=== PATIENT | female | born 2000 | race Two or more races ===

== ENCOUNTER 2025-01-05 21:31 | Emergency (ER) | payer MEDICAID, OTHER ==
[~2025-01-05] VITALS: Ht 149.9 cm; Wt 45.4 kg
[2025-01-05 21:41] VITALS: BP 107/69; PULSE 60; RESP 16; TEMP 98.1; O2SAT 99
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
== END 2025-01-06 00:11 | disposition home or self-care (01) ==
LOC: ER 21:31 → EDBD 21:31 → ER 01-06 00:11
DX: R51.9 Headache, unspecified (principal); Z04.89 Encounter for examination and observation for other specified reasons; Z88.0 Allergy status to penicillin; Z88.8 Allergy status to other drugs, medicaments and biological substances; Y08.89XA Assault by other specified means, initial encounter; Y93.89 Activity, other specified; Y92.89 Other specified places as the place of occurrence of the external cause; Y99.8 Other external cause status

== ENCOUNTER 2025-01-06 00:38 | Emergency (ER) | payer MEDICAID ==
[~2025-01-06] VITALS: Ht 149.9 cm; Wt 49.9 kg
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
[2025-01-06 02:56] LABS: Basophils # (auto) 0 10 ^3/uL (0-0.2); Basophils % (auto) 0.6 % (0.0-2.0); Eosinophils # (auto) 0.1 10 ^3/uL (0-0.8); Eosinophils % (auto) 1.5 % (0.0-7.0); Hematocrit 39.1 % (36.0-46.0); Hemoglobin 13.4 g/dL (12.2-16.2); Lymphocytes # (auto) 3.2 10 ^3/uL (0.4-5.4); Lymphocytes % (auto) 43.5 % (10.0-50.0); Mean Corpuscular Hemoglobin 29.4 pg (28.0-32.0); Mean Corpuscular Hgb Conc. 34.2 g/dL (32.0-36.0); Monocytes # (auto) 0.7 10 ^3/uL (0-1.3); Monocytes % (auto) 10.1 % (0.0-12.0); Neutrophils # (auto) 3.2 10 ^3/uL (1.6-8.6); Neutrophils % (auto) 44.3 % (37.0-80.0); Nucleated Red Blood Cells % 0.1 %; Platelet Count (auto) 250 10^3/uL (140-450); Red Blood Cells 4.55 10^6/uL (4.0-5.20); White Blood Cell 7.3 10^3/uL (4.4-10.8)
[2025-01-06 02:59] LABS: Sodium 141 mmol/L (136-145)
[2025-01-06 03:00] LABS: Anion Gap 8 (5-15); Calcium 9.6 mg/dL (8.7-10.4); Carbon Dioxide 22 mmol/L (20-31)
[2025-01-06] MEDS: HALOPERIDOL LACTATE 5 MG/ML INJ VIAL ONE (03:04)
[2025-01-06 03:05] LABS: BUN/Creatinine Ratio 16.4 (10.0-20.0); Blood Urea Nitrogen 10 mg/dL (9-23); Glucose 79 mg/dL (74-106)
[2025-01-06] MEDS: HALOPERIDOL LACTATE 5 MG/ML INJ VIAL IM ONE (03:06)
[2025-01-06 03:11] LABS: Acetaminophen < 2.0 UG/ML (10.0-20.0); Chloride 111 mmol/L (98-107); Salicylate < 3.0 mg/dL (-30)
[2025-01-06 07:30] VITALS: PULSE 87; RESP 12; O2SAT 100
[2025-01-06 09:14] LABS: Urine Bacteria FEW /hpf (None Seen); Urine Blood Negative /uL (Negative); Urine Clarity Turbid (Clear); Urine Color Light-Yellow (Yellow); Urine Hyaline Cast FEW /lpf (0 - 2); Urine Mucus FEW (None Seen); Urine Protein, UAD Negative (Negative); Urine Specific Gravity 1.018 (1.001-1.035); Urine Squamous Epithelial Cell MOD /hpf (<5); Urine Urobilinogen Normal (Negative); Urine WBC 5 /HPF (0-5); Urine pH 5.5 (5.0-9.0)
[2025-01-06 09:29] LABS: Cannabinoid Screen, Urine Pos (NEGATIVE)
[2025-01-06 09:41] LABS: Amphetamine Screen, Urine Neg (NEGATIVE); Barbiturate Scree,Urine Neg (NEGATIVE); Benzodiazephine Screen, Urine Neg (NEGATIVE); Cocaine Screen, Urine Neg (NEGATIVE); Opiate Scree,Urine Neg (NEGATIVE); Phencyclidine Screen, Urine Neg (NEGATIVE)
[2025-01-06] MEDS: traZODone HCL 50 MG TAB PO ONE (15:36)
[2025-01-06 16:00] VITALS: BP 102/53; PULSE 67; RESP 14; TEMP 98.3; O2SAT 99
== END 2025-01-06 16:32 | disposition short-term general hospital (02) ==
LOC: ER 00:38
DX: R45.851 Suicidal ideations (principal); F41.9 Anxiety disorder, unspecified; F31.9 Bipolar disorder, unspecified; R41.82 Altered mental status, unspecified; Z79.899 Other long term (current) drug therapy
CPT/HCPCS: 36415; 80048; 80307; 80320; 80329; 81001; 81025; 85025; 96372; 99285; J1630